=== PATIENT | male | born 1965 | race Caucasian/White ===

== ENCOUNTER 2024-01-06 14:48 | Emergency (ER) | payer MEDICARE, OTHER ==
[~2024-01-06] VITALS: Ht 182.9 cm; Wt 79.4 kg
[2024-01-06] MEDS ORDERED: HYDROMORPHONE 1 MG/1 ML DISP.SYRIN ONE ×2 (15:36→16:48)
[2024-01-06] MEDS ORDERED: HYDROMORPHONE 2 MG/1 ML DISP.SYRIN ONE (15:36)
[2024-01-06] MEDS: HYDROMORPHONE 1 MG/1 ML DISP.SYRIN IM ONE (15:40)
[2024-01-06 15:58] LABS: BASOPHILS # (AUTO) 0.1 K/UL (0.0-0.2); BASOPHILS % (AUTO) 1.3 % (0.0-2.0); EOSINOPHILS # (AUTO) 0.1 K/uL (0.0-0.7); EOSINOPHILS % (AUTO) 0.7 % (0.0-7.0); LYMPHOCYTES # (AUTO) 0.7 K/uL (0.8-4.8); LYMPHOCYTES % (AUTO) 7.2 % (20.5-51.5); MEAN CORPUSCULAR HEMOGLOBIN 30.1 uug (23.8-33.4); MEAN CORPUSCULAR HGB CONC 32 g/dL (32.5-36.3); MEAN CORPUSCULAR VOLUME 93.4 fL (73.0-96.2); MONOCYTES # (AUTO) 0.7 K/uL (0.1-1.30); MONOCYTES % (AUTO) 7.6 % (0.0-11.0); NEUTROPHILS # (AUTO) 7.7 K/uL (1.8-8.9); NEUTROPHILS % (AUTO) 83.2 % (38.5-71.5); PLATELET COUNT (AUTO) 429 K/uL (152-348); RED BLOOD CELL COUNT(AUTO) 3.32 MIL/uL (4.06-5.63); RED CELL DISTRIBUTION WIDTH 19.5 % (12.1-16.2); WHITE BLOOD COUNT (AUTO) 9.3 K/uL (3.6-10.2)
[2024-01-06 16:02] LABS: *BILIRUBIN,URIN NEGATIVE (NEGATIVE); *BLOOD, URINE 2+ (NEGATIVE); *CLARITY,URINE TURBID (CLEAR); *COLOR,URINE YELLOW (YELLOW); *KETONES,URINE TRACE (NEGATIVE); *UROBILINOGEN,URINE 0.2 E.U./dl (NORMAL); LEUKOCYTE ESTERASE ,URINE 3+ (NEGATIVE); NITRITE, URINE NEGATIVE (NEGATIVE); PH,URINE 5.5 (5.0-8.0); UGLUCOSE NEGATIVE (NEGATIVE)
[2024-01-06 16:06] LABS: DIFFERENTIAL COMMENT 1
[2024-01-06 16:07] LABS: *PROTEIN,URINE 3+ (NEGATIVE)
[2024-01-06 16:26] LABS: CALCIUM 8.2 mg/dL (8.5-10.1); CREATININE 3.6 mg/dL (0.6-1.3); POTASSIUM 3.8 mmol/L (3.5-5.1)
[2024-01-06] MEDS ORDERED: CEFTRIAXONE /D5W 50ML IVPB **ER PYXIS IV ONE (16:47)
[2024-01-06] MEDS: HYDROMORPHONE 1 MG/1 ML DISP.SYRIN IV ONE (17:00)
[2024-01-06] MEDS ORDERED: GABAPENTIN 300 MG CAPSULE ONE (17:30)
[2024-01-06] MEDS: GABAPENTIN 300 MG CAPSULE PO ONE (17:33)
[2024-01-06] MEDS: CEFTRIAXONE 1 G in IV DEXTROSE 5% 50 ML IV ONE (17:33)
[2024-01-06] MEDS ORDERED: CEFD300C3 PO (18:02)
[2024-01-06 18:35] VITALS: BP 122/80; TEMP 98; O2SAT 99
[2024-01-06 22:40] LABS: BACTERIA,URINE MODERATE /HPF (NONE SEEN); WBC,URINE TNTC /HPF (0-3)
[2024-01-06 22:41] LABS: SQUAMOUS EPITHELIAL CELL,UR FEW /HPF (NONE SEEN)
== END 2024-01-06 18:37 ==
LOC: ER 14:48
DX: G89.29 Other chronic pain (principal); N39.0 Urinary tract infection, site not specified; F09 Unspecified mental disorder due to known physiological condition; E11.22 Type 2 diabetes mellitus with diabetic chronic kidney disease; N18.6 End stage renal disease; Z99.2 Dependence on renal dialysis; Z88.8 Allergy status to other drugs, medicaments and biological substances
CPT/HCPCS: 99284; 96365; 96375; 80048; 81001; 85025; 36415; 96372; J0696; J1170 ×3; A4606; A4663